=== PATIENT | female | born 1985 | race African-American/Black ===

== ENCOUNTER 2019-03-14 05:42 | Day surgery (SDC) | payer BC ==
[~2019-03-14] VITALS: Ht 167.6 cm; Wt 72.6 kg
--- NOTE | ~2019-03-14 | O ---
[facility] [place] [address] OPERATIVE REPORT Name: LATA WU Room #: 150-10 [facility]#: [id number] Admission: 03/14/19 ������������������ Attend Phys: Kalpesh Hollingsworth MD Discharge: ������������������ Date of : 89 Report #: [id number] THIS REPORT FOR: //name// CC: Peri Hollingsworth DATE OF SERVICE: 03/14/2019 PREOPERATIVE DIAGNOSES: Chronic maxillary, ethmoid and frontal sinusitis with nasal and sinus polyposis and allergic fungal sinusitis. POSTOPERATIVE DIAGNOSES: Chronic maxillary, ethmoid and frontal sinusitis with nasal and sinus polyposis and allergic fungal sinusitis. OPERATIVE PROCEDURE: Left endoscopic maxillary antrostomy with removal of polyps, left complete ethmoidectomy and left frontal duct exploration with removal of polyps. ANESTHESIA: General by laryngeal mask. DESCRIPTION OF PROCEDURE: The patient was taken to the operating room and placed in supine position. General anesthesia was induced by laryngeal mask. Once adequate general anesthesia was obtained, local nasal anesthesia was induced by submucoperiosteal injection of 1% lidocaine with 1:100,000 epinephrine and topical application of cocaine solution. The patient was also prepared and draped in a sterile manner. I tried to use the image guidance for the procedure, but the CT scan was not compatible. The nasal endoscope was used to visualize the left nasal cavity, which was filled with polyps. I removed polyps from the middle meatus and the inferior meatus and removed the portion of the soft fontanelle, which was bulging into the middle meatus. Within the maxillary sinus was thick brown mucin consistent with allergic fungal sinusitis. I was able to evacuate the sinus of all of this material, but it was quite difficult because it was so thick and sticky. I used a large bore suction and a curved suction to evacuate the maxillary sinus. I removed the soft fontanelle completely and then used a curved blade on the microdebrider to clean polyps out of the natural opening of the maxillary sinus in order to getting anteriorly and evacuate the material from the sinus. I removed polyps from the ethmoid cavity and opened the ethmoid air cells back to and through the basal lamella and then forward along the lamina papyracea. I then located the fovea ethmoidalis posteriorly. There was thick allergic fungal mucin within some of the posterior ethmoid air cells. I then followed polyps into the frontal duct and removed some thick mucus from the frontal duct as well. I left large openings into the ethmoid cavity and maxillary sinus and a smaller opening into the frontal sinus. FloSeal was placed into the ethmoid cavity for hemostasis. The patient tolerated the procedure well. Blood loss was approximately 200 mL. The patient [address] [address] OPERATIVE REPORT Name: BRYCELATA Room #: 150-10 [facility]..#: [id number] Admission: 03/14/19 ������������������ Attend Phys: Kalpesh Hollingsworth MD Discharge: ������������������ Date of : 89 Report #: [id number] was then awoken and taken to the recovery room in stable condition for postoperative monitoring. ��������������������������������������������� ���������������������������������������� By: ��������������������������������������������� [id number] Kalpesh Hollingsworth MD /nt
--- NOTE | ~2019-03-14 | H ---
[facility] [place] [address] HISTORY AND PHYSICAL Name: LATA WU Room #: [facility]..#: [id number] Admission: ������������������ Attend Phys: Kalpesh Hollingsworth MD Discharge: ������������������ Date of : 89 Report #: [id number] THIS REPORT FOR: //name// CC: Peri Hollingsworth Her procedure is scheduled for 03/14/2019. HISTORY OF PRESENT ILLNESS: The patient is having problems with the left side of her nose being completely blocked and is always draining. She has had sinus issues for many years and has been on antibiotics off and on for the last 4 months. She has had a persistent infection in the left nostril, causes her to have complete inability to breathe. She has significant sinus drainage. A CT scan shows complete opacification of the left nasal cavity of the left maxillary sinus, the left ethmoid sinuses, especially anteriorly into the left frontal duct. There is bulging of the medial wall of the maxillary sinus and a whitish consistency to the material that may signal allergic fungal sinusitis. PAST MEDICAL HISTORY: Otherwise, not significant. MEDICATIONS: She is on no medications on a regular basis. ALLERGIES: She has no known drug allergies. PHYSICAL EXAMINATION: HEENT: She has a large polyp blocking the nasal cavity on the left side that is almost coming out of her nose. Her oropharynx and oral cavity were clear. She had no adenopathy or masses in her neck. IMPRESSION: Nasal polyps, chronic, left maxillary, ethmoid; and frontal sinusitis with possible allergic fungal sinusitis. PLAN: Endoscopic left maxillary antrostomy with removal of polyp, complete ethmoidectomy and frontal duct exploration with image-guided surgery. ��������������������������������������������� ���������������������������������������� By: ��������������������������������������������� [id number] Kalpesh Hollingsworth MD /nt
[~2019-03-14 05:42] MED LIST: CENTRUM SILVER1 EAC4 PO; IRON325 PO; VITAMIN E400 UNIT PO
[2019-03-14 10:53] VITALS: BP 120/77
[2019-03-14 12:39] VITALS: BP 120/77
== END 2019-03-14 13:30 | disposition home or self-care (01) ==
LOC: TBA 05:42 → OR 05:42 → TBA 05:43 → OR 11:41
DX: J32.2 Chronic ethmoidal sinusitis (principal); J32.0 Chronic maxillary sinusitis; J32.1 Chronic frontal sinusitis; J33.9 Nasal polyp, unspecified; J33.8 Other polyp of sinus; J30.89 Other allergic rhinitis; D64.9 Anemia, unspecified; Z98.890 Other specified postprocedural states; Z79.899 Other long term (current) drug therapy
CPT/HCPCS: 50010; 50101; 50286; 50386; 50398; 50573; 51751; 52290; 52291; 62110; 62900; 70005